=== PATIENT | male | born 1975 | race Caucasian/White ===

== ENCOUNTER → 2019-04-14 | Outpatient (CLI) | payer OTHER ==
--- NOTE | 2019-04-15 15:38 | US ---
EXAM DESCRIPTION: Testicular: Ultrasound. CLINICAL HISTORY: 43 years Male Hydrocele COMPARISON: None. TECHNIQUE: Transcutaneous scanning ; martinez-scale and Doppler modes. FINDINGS: Dimensions of the right testicle are 3.5 x 3.3 cm, with normal echogenicity and normal color Doppler flow. Epididymal head measures 10 x 13 x 9.3 mm, with normal echogenicity and normal color Doppler flow. Large amount of fluid in the right inguinal canal and echogenic material also seen within the inguinal canal with lobulated margins. This is suggestive of fat and demonstrates minimal vascularity. No peristalsing bowel can be seen in the canal. No scrotal wall thickening. Large Hydrocele, scrotal sac measures 6.8 x 6.4 x 4.7 cm. Dimensions of the left testicle are 4.0 x 3.1 x 1.9 cm, with normal echogenicity and normal color Doppler flow. Displaced from mass effect from the right scrotum. Epididymal head measures 16.8 x 8.6 x 6.2 mm, with normal echogenicity and normal color Doppler flow. No scrotal wall thickening. Serpiginous structure around the superior left testicle and epididymal head demonstrates increased Doppler color flow with Valsalva maneuver consistent with a varicocele. No Hydrocele. IMPRESSION: 1. Fluid and fat in the right inguinal canal likely representing a herniation. No bowel is seen. Also large hydrocele and enlarged right scrotal sac. Mass effect on the left scrotum. Normal size echogenicity and vascularity of the right testicle and epididymis. 2. Normal size echogenicity and vascularity of the left testicle and epididymis. Mass effect from the right scrotum, and also superior varicocele. Electronically signed by: Mian Galindo MD 04/15/2019 3:36 PM CDT
== END ==
LOC: US 10:20
PROVIDERS: ATTEND Family Medicine
DX: N43.2 Other hydrocele (principal)

== ENCOUNTER → 2019-06-04 | Outpatient (CLI) | payer OTHER | LOC: LAB.O 16:12 | PROVIDERS: ATTEND Surgery | DX: D69.6 Thrombocytopenia, unspecified (principal) ==

== ENCOUNTER → 2019-06-05 | Outpatient (CLI) | payer OTHER | LOC: AMB 05:50 → EDSTATUS 13:15 | PROVIDERS: ATTEND Surgery | DX: K40.90 Unilateral inguinal hernia, without obstruction or gangrene, not specified as recurrent (principal); N43.3 Hydrocele, unspecified; Z53.9 Procedure and treatment not carried out, unspecified reason ==

== ENCOUNTER → 2019-06-19 | Outpatient (CLI) | payer OTHER ==
--- NOTE | 2019-06-19 13:06 | CT ---
EXAM DESCRIPTION: CT ABDOMEN AND PELVIS WITHOUT AND WITH CONTRAST CLINICAL HISTORY: ABNORMAL LAB RESULTS COMPARISON: None Available. TECHNIQUE: CT of the abdomen and pelvis are performed prior to and during IV bolus administration of routine adult dose of nonionic iodinated IV contrast. No oral contrast. FINDINGS: CT abdomen The lung bases are clear of infiltrate. Liver is cirrhotic in appearance, small with irregular surface. Cyst in the peripheral right lobe is incidentally noted of small size. No calcified gallstones in the gallbladder. Spleen is enlarged with large upper abdominal vessels consistent with portal hypertension and upper esophageal varices. Linear density in the right kidney is noted which may be milk of calcium in the posterior aspect of a hemorrhagic cyst 2.9 cm in size with a precontrast density of 30 Hounsfield units. Pancreas and left kidney are otherwise unremarkable. After IV contrast, repeat helical CT scan through the upper abdomen shows two tiny lesions of the right lobe of the liver consistent with small cysts. No solid appearing hepatic mass to suggest complicating neoplasm. Spleen enhances normally with no focal lesion. Normal enhancement of upper abdominal variceal vessels. Spontaneous left splenorenal shunt is present. Right renal lesion is seen with a postcontrast density of 32-37 Hounsfield units which is consistent with a nonenhancing lesion. Hemorrhagic renal cyst is most likely. Sono images with careful so no follow-up is recommended to ensure stability and cystic nature. Tiny lesions in the left kidney are most consistent with small cortical cysts. Delayed postcontrast images show normal accumulation of contrast in the urinary collecting systems. On the delayed images, right renal density is 34.7 Hounsfield units arguing against delayed enhancement. No delayed enhancement of the hepatic lesions, also consistent with cysts. CT pelvis No inflammation is seen around the cecum or terminal ileum or sigmoid colon. Sigmoid diverticulosis is present. Fat containing inguinal hernia is seen on the right with patulous fatty left inguinal hernia. There is hyperintensity in the fat of the lower anterior omentum in the lower abdomen and pelvis and strandy increased density in the fat within the right inguinal hernia consistent with mild edema. Mild edematous changes in the fat surrounding the right colon without colonic mass or wall thickening. Inflammation is not centered around the appendix. Tiny amount of free pelvic fluid is seen. Appendix is normal in appearance. No stones are seen in the distal ureters or bladder. Normal pelvic small bowel loops. No fracture or lytic lesion of the osseous structures. Postcontrast images show normal enhancement of the pelvic vessels. Prostate and seminal vesicles appear normal for age. Coronal and sagittal reformatted images confirm the findings. Enlarged spleen measures 18 cm in craniocaudal length. IMPRESSION: Cirrhotic liver with splenomegaly and changes of portal hypertension. Tiny liver lesions consistent with cysts. Right renal lesion 2.9 cm most consistent with hemorrhagic cyst. See above. Right inguinal hernia containing omental fat. This exam was performed according to our departmental dose-optimization program, which includes automated exposure control, adjustment of the mA and/or kV according to patient size and/or use of iterative reconstruction technique. Electronically signed by: Candido Crowley MD 06/19/2019 1:04 PM CDT
== END ==
LOC: CT 08:00
PROVIDERS: ATTEND Family Medicine
DX: K74.60 Unspecified cirrhosis of liver (principal); R16.1 Splenomegaly, not elsewhere classified; K76.9 Liver disease, unspecified; N28.9 Disorder of kidney and ureter, unspecified; K40.90 Unilateral inguinal hernia, without obstruction or gangrene, not specified as recurrent

== ENCOUNTER 2019-07-10 11:17 | Emergency (ER) | payer OTHER ==
--- NOTE | 2019-07-10 11:33 | ED.PDOC ---
History of Present Illness - General Chief Complaint: Lower Extremity Injury Time Seen by Provider: 07/10/19 11:26 - History of Present Illness Initial Comments: this a 43 year old male patient [place], patient presents with left knee pain after fall, patient didnt hit his head, no loc, patient didnt fell a pop on the affected knee when he fell. patient stated that the pain if 4 out of 10 but worse when he puts pressure on it Allergies/Adverse Reactions: Allergies NO KNOWN ALLERGY Allergy (Verified 06/03/19 12:42) Home Medications: Ambulatory Orders NK 06/03/19 Review of Systems - Review of Systems Constitutional: States: no symptoms reported. Denies: chills, diaphoresis, fever, malaise, weakness EENTM: Denies: no symptoms reported, eye pain, blurred vision, tearing, double vision, ear pain, ear discharge, nose pain, nose congestion, throat pain, throat swelling, mouth pain Respiratory: Denies: no symptoms reported, cough, orthopnea, short of breath, stridor, wheezing Cardiology: Denies: no symptoms reported, chest pain, edema, palpitations, syncope Gastrointestinal/Abdominal: Denies: abdominal pain, constipation, diarrhea, nausea, vomiting Genitourinary: Denies: discharge, dysuria, frequency, hematuria, pain Musculoskeletal: States: joint pain. Denies: back pain, gout, joint swelling, muscle pain, muscle stiffness, neck pain Skin: Denies: change in color, change in hair/nails, dryness, lesions, lumps, rash Neurological: Denies: anxiety, depressed, emotional problems, headache, numbness, paresthesia, pre-existing deficit, tingling, tremors, weakness Endocrine: Denies: excessive sweating, flushing, intolerance to cold, increased hunger, increased thirst, increased urine, unexplained weight gain, unexplained weight loss All other Systems: Reviewed and Negative Past Medical History (General) - Patient Medical History Hx MRSA: No Family Medical History - Family History Mother Family History: Unknown Physical Exam - Physical Exam General Appearance: Alert, Comfortable Eye Exam: bilateral normal Ears, Nose, Throat: hearing grossly normal Neck: non-tender, full range of motion, supple, normal inspection Respiratory: chest non-tender, lungs clear, normal breath sounds, no respiratory distress, no accessory muscle use Cardiovascular/Chest: normal peripheral pulses, regular rate, rhythm, no edema, no gallop, no JVD, no murmur Gastrointestinal/Abdominal: normal bowel sounds, non tender, soft Back Exam: normal inspection Extremity: other - swelling noted on the left knee, without any deformities Progress - Progress Progress: 07/10/19 11:34 this is a 43 year old that presents with left knee pain after fall, no deformities noted n physical exam will get a knee x rays. we discussed the potential for ligament injuries, and that we wont be able to see those on xrays 07/10/19 12:28 patient with a non displaced subtel tybial plateu fracture, I called Dr Kimball, and he recommended non contrast ct of the lower extremity, knee immobilize, crutches and follow up with himin his office patient will be discharge home with castile Departure - Departure Clinical Impression: Tibial plateau fracture, left Disposition: Discharge to Home or Self Care Departure Forms: ED Discharge - Pt. Copy, Patient Portal Self Enrollment Instructions: DI for Leg Pain, Knee Immobilizer (DC), Tibial Plateau Fracture (DC) Referrals: Conrad Hess MD [Primary Care Provider] - 1-2 Weeks Renato Kimball MD [Active Staff] - 1-2 Days Home Medications: Ambulatory Orders NK 06/03/19 Additional Instructions: keep extremity elevated and follow up with orthopedic surgeon, no weight bear on the affected extremity
[2019-07-10 11:43] VITALS: TEMP 97.4
--- NOTE | 2019-07-10 11:48 | RAD ---
EXAM DESCRIPTION: Knee,Left Complete CLINICAL HISTORY: fall COMPARISON: None. IMPRESSION: 3 views of the left knee show subtle vertically oriented curvilinear fracture line lucency in the posterior aspect of the proximal tibia. Subtle fracture of the lateral tibial plateau is seen without significant displacement of fracture fragments. No articular surface incongruity. Moderate suprapatellar joint effusion with lipohemarthrosis and fat fluid level seen on the crosstable lateral view. Consider further evaluation with CT or MRI. Patella sunrise view is suboptimal. Soft tissue swelling around the knee is also seen. Electronically signed by: Oskar Mari MD 07/10/2019 11:47 AM CDT
--- NOTE | 2019-07-10 12:56 | CT ---
CT left knee without contrast INDICATION: Tibial plateau fracture knee pain initial encounter TECHNIQUE: Helical CT images through the left knee with multiplanar reformats This exam was performed according to our departmental dose-optimization program, which includes automated exposure control, adjustment of the mA and/or kV according to patient size and/or use of iterative reconstruction technique. FINDINGS: Lipohemarthrosis related to acute intra-articular tibial plateau fracture. There is a punch type depressed lateral and posterior lateral tibial plateau intra-articular fracture. The impacted area measures 2 x 3 cm. Impaction measures 4.5-5 mm maximal posteriorly. Small osteochondral lesion in the medial femoral condyle midportion measuring 12 mm in diameter. The fracture extends into the proximal tib-fib joint. There is no diastasis. Mild osteoarthrosis in the medial tibiofemoral compartment with joint space narrowing IMPRESSION: Large lipohemarthrosis Impacted punch type fracture lateral tibial plateau with maximal impaction up to 5 mm posteriorly Small osteochondral lesion medial femoral condyle with mild medial tibiofemoral compartment osteoarthrosis Electronically signed by: Victoriano Candelaria MD 07/10/2019 12:54 PM CDT
[2019-07-10] MEDS ORDERED: HYDROcodone 10MG/APAP 325MG 1 EA TAB PO ONE (12:59)
[2019-07-10] MEDS ORDERED: HYDROcodone 10MG/APAP 325MG 1 EA TAB ONE (12:59)
[2019-07-10 14:15] VITALS: BP 153/92; O2SAT 99
== END 2019-07-10 13:30 | disposition home or self-care (01) ==
LOC: ER 11:17
DX: S82.145A Nondisplaced bicondylar fracture of left tibia, initial encounter for closed fracture (principal); W19.XXXA Unspecified fall, initial encounter; Y92.242 Post office as the place of occurrence of the external cause